=== PATIENT | female | born 1965 | race Caucasian/White ===

== ENCOUNTER 2021-04-17 | Inpatient (IN) ==
[2021-04-17] MEDS ORDERED: NS 0.9% 1000 ml BAG 1,000 ML IV ONE (00:09)
[2021-04-17 00:30] LABS: ABS Basophils 0.1 10^3/ul (0-0.2); ABS Eosinophils 0.3 10^3/ul (0-0.6); ABS Lymphocytes 2.9 10^3/ul (1.0-4.8); ABS Monocytes 0.5 10^3/ul (0-0.8); ABS Neutrophils 3.8 10^3/ul (1.5-7.7); Hematocrit 41 % (35-47); Hemoglobin 13.8 g/dL (12.0-16.0); Lymphocyte % 38.3 %; Mean Corpuscular HGB Conc 34 g/dL (31-36); Mean Corpuscular Hemoglobin 32 pg (27-31); Mean Corpuscular Volume 94 fL (80-97); Mean Platelet Volume 8.3 fL (7.4-10.4); Platelet Count 234 10^3/uL (150-450); Red Blood Count 4.36 10^6 /uL (3.70-4.87); Red Cell Distribution Width 14 % (10-15); White Blood Count 7.5 10^3/uL (3.5-10.8)
[2021-04-17 00:34] LABS: Urine Appearance Clear; Urine Bilirubin Negative (Negative); Urine Blood Negative (Negative); Urine Color Yellow; Urine Glucose Negative (Negative); Urine Ketones Negative (Negative); Urine Nitrite Negative (Negative); Urine Protein Negative (Negative); Urine Specific Gravity 1.023 (1.002-1.030); Urine Urobilinogen Negative (Negative)
[2021-04-17 00:42] LABS: Urine Benzodiazepine Screen Presumptive Positive (None Detect); Urine Cannabinoids Screen None Detected (None Detect); Urine Opiates Screen None Detected (None Detect)
[2021-04-17 00:47] LABS: ALT 12 U/L (7-52); AST 15 U/L (13-39); Acetaminophen 28 mcg/mL; Albumin/Globulin Ratio 1.4 (1-3); Alcohol, S < 10 mg/dL (<10); Alkaline Phosphatase 73 U/L (35-149); Anion Gap 9 mmol/L (2-11); Blood Urea Nitrogen 17 mg/dL (6-24); CO2 Carbon Dioxide 26 mmol/L (22-32); Calcium 9.2 mg/dL (8.6-10.3); Chloride 103 mmol/L (101-111); Creatine Kinase 76 U/L (10-223); EGFR African American 72.1 (>60); EGFR Non-African American 59.6 (>60); Globulin 2.9 g/dL (2-4); Glucose 98 mg/dL (70-100); Potassium 3.6 mmol/L (3.5-5.0); Salicylate < 2.50 mg/dL (<30); Sodium 138 mmol/L (135-145); Total Protein 6.9 g/dL (6.4-8.9)
[2021-04-17 01:01] LABS: TSH Ultra Thyroid Stim Horm 6.56 mcIU/mL (0.34-5.60)
[2021-04-17] MEDS ORDERED: ACETYLCYSTEINE IV ONE ×3 (02:45→08:30)
[2021-04-17] MEDS ORDERED: D5W IV ONE ×3 (02:45→08:30)
[2021-04-17] MEDS ORDERED: D5W IV SCH (03:00)
[2021-04-17] MEDS ORDERED: D5W 1000 ml BAG 1,000 ML IV SCH (03:30)
[2021-04-17] MEDS ORDERED: Nicotine GUM 4MG FRUIT FLAVOR PO PRN (03:58)
[2021-04-17] MEDS ORDERED: Lorazepam PYXIS KEY PRN (04:06)
[2021-04-17] MEDS ORDERED: LORazepam 2 mg VIAL 1 ml IV PUSH PRN (04:06)
[2021-04-17 06:30] LABS: Hematocrit 39 % (35-47); Hemoglobin 13.2 g/dL (12.0-16.0); Mean Corpuscular HGB Conc 34 g/dL (31-36); Mean Corpuscular Hemoglobin 32 pg (27-31); Mean Corpuscular Volume 94 fL (80-97); Mean Platelet Volume 8.6 fL (7.4-10.4); Platelet Count 211 10^3/uL (150-450); Red Blood Count 4.17 10^6 /uL (3.70-4.87); Red Cell Distribution Width 14 % (10-15); White Blood Count 9.2 10^3/uL (3.5-10.8)
[2021-04-17 06:42] LABS: INR 1.14 (0.82-1.09)
[2021-04-17 06:43] LABS: ALT 28 U/L (7-52); AST 36 U/L (13-39); Albumin 3.6 g/dL (3.2-5.2); Albumin/Globulin Ratio 1.4 (1-3); Alkaline Phosphatase 65 U/L (35-149); Anion Gap 11 mmol/L (2-11); Blood Urea Nitrogen 16 mg/dL (6-24); CO2 Carbon Dioxide 24 mmol/L (22-32); Calcium 8.2 mg/dL (8.6-10.3); Chloride 106 mmol/L (101-111); EGFR African American 79.7 (>60); EGFR Non-African American 65.8 (>60); Globulin 2.6 g/dL (2-4); Glucose 132 mg/dL (70-100); Potassium 3.6 mmol/L (3.5-5.0); Sodium 141 mmol/L (135-145); Total Protein 6.2 g/dL (6.4-8.9)
[2021-04-17 06:46] LABS: Acetaminophen < 15 mcg/mL
[2021-04-17] MEDS ORDERED: Pantoprazole VIAL 40 MG VIAL IV SCH (09:00)
[2021-04-17 20:08] LABS: INR 1.22 (0.82-1.09)
[2021-04-17 20:33] LABS: Albumin 3.7 g/dL (3.2-5.2)
[2021-04-17 20:38] LABS: Acetaminophen < 15 mcg/mL
[2021-04-17 20:39] LABS: ALT 23 U/L (7-52); AST 17 U/L (13-39); Albumin/Globulin Ratio 1.6 (1-3); Alkaline Phosphatase 63 U/L (35-149); Globulin 2.3 g/dL (2-4)
[2021-04-18 04:19] LABS: ABS Basophils 0.1 10^3/ul (0-0.2); ABS Eosinophils 0.2 10^3/ul (0-0.6); ABS Lymphocytes 2.1 10^3/ul (1.0-4.8); ABS Monocytes 0.5 10^3/ul (0-0.8); ABS Neutrophils 4.1 10^3/ul (1.5-7.7); Hematocrit 40 % (35-47); Hemoglobin 13.3 g/dL (12.0-16.0); Lymphocyte % 30.1 %; Mean Corpuscular HGB Conc 33 g/dL (31-36); Mean Corpuscular Hemoglobin 32 pg (27-31); Mean Corpuscular Volume 96 fL (80-97); Mean Platelet Volume 8.3 fL (7.4-10.4); Nucleated Red Blood Cells % 0.1; Platelet Count 218 10^3/uL (150-450); Red Blood Count 4.19 10^6 /uL (3.70-4.87); Red Cell Distribution Width 15 % (10-15)
[2021-04-18 04:22] LABS: INR 1.29 (0.82-1.09)
[2021-04-18 04:26] LABS: Albumin 3.1 g/dL (3.2-5.2); Calcium 6.9 mg/dL (8.6-10.3); Potassium 3.4 mmol/L (3.5-5.0); Total Bilirubin 0.3 mg/dL (0.2-1.0)
[2021-04-18 04:33] LABS: Albumin/Globulin Ratio 1.6 (1-3); EGFR Non-African American 105.8 (>60); Globulin 1.9 g/dL (2-4)
[2021-04-18 09:53] LABS: Magnesium 1.8 mg/dL (1.9-2.7)
[2021-04-18 09:59] LABS: Phosphorus 3.4 mg/dL (2.5-5.0)
[2021-04-18 13:18] VITALS: BP 118/81
== END 2021-04-18 14:00 | disposition home or self-care (01) | DRG 918 ==
LOC: ED → ICU 03:36
PROVIDERS: ADMIT Internal Medicine; ATTEND Internal Medicine Critical Care Medicine